=== PATIENT | male | born 1970 | race African-American/Black ===

== ENCOUNTER 2020-04-27 18:40 | Inpatient (IN) | payer MEDICAID ==
[~2020-04-27] VITALS: Ht 167.6 cm; Wt 95.3 kg
[~2020-04-27 18:40] MED LIST: INDO50CA99 PO; METO-385 PO
[2020-04-27] MEDS ORDERED: ACETAMINOPHEN 325MG TABLET PO STA (18:54)
[2020-04-27] MEDS ORDERED: PIPERACILLIN/TAZ 3.375G PREMIX 50 ML IV ONE (19:00)
[2020-04-27] MEDS ORDERED: SODIUM CHLORIDE 0.9% 1000ML BAG (SEPSIS BOLUS) IV ONE (19:00)
[2020-04-27] MEDS ORDERED: VANCOMYCIN 1 G PREMIX 200 ML IV ONE (19:00)
[2020-04-27 19:29] LABS: HEMATOCRIT. 29.3 % (42.0-52.0); HEMOGLOBIN. 9.5 g/dL (14.0-18.0); MEAN CORPUSCULAR HEMOGLOBIN 26.6 pg (28.0-32.0); MEAN CORPUSCULAR VOLUME 82.2 fL (80.0-94.0); MEAN PLATELET VOLUME 8.4 fl (7.4-10.4); PLATELET 370 x1000/uL (130-400); RED BLOOD CELL COUNT 3.57 mill/uL (4.7-6.1); RED CELL DISTRIBUTION WIDTH 17.7 % (11.6-14.6)
[2020-04-27 19:36] LABS: CHLORIDE 105 mEq/L (98-107)
[2020-04-27 20:03] LABS: PLATELET ESTIMATE NORMAL
[2020-04-27 20:45] LABS: INR 1.2; PROTHROMBIN TIME 12.2 sec (9.6-11.0)
[2020-04-27 23:51] LABS: CLARITY URINE CLEAR (CLEAR); COLOR URINE DARK YELLOW (YELLOW); KETONES URINE NEGATIVE (NEGATIVE); LEUKOCYTE ESTERASE URINE TRACE (NEGATIVE); NITRITE URINE NEGATIVE (NEGATIVE); OCCULT BLOOD URINE 2+ (NEGATIVE); PROTEIN URINE 2+ (NEGATIVE); SPECIFIC GRAVITY URINE 1.024 (1.005-1.030)
[2020-04-28 08:41] VITALS: BP 155/80
[2020-04-28] MEDS ORDERED: HYDROCODONE/ACETAMINOPHEN 5/325MG TABLET PO PRN (09:45)
[2020-04-28] MEDS ORDERED: ACETAMINOPHEN 325MG TABLET PO PRN (09:45)
[2020-04-28] MEDS: AMLODIPINE 10MG TABLET PO SCH (11:17)
[2020-04-28] MEDS: DEXAMETHASONE 2MG TABLET PO SCH (11:17)
[2020-04-28 12:10] VITALS: BP 123/68
[2020-04-28] MEDS: CEFTRIAXONE 1,000 MG in DEXTROSE 5% WATER 50 ML IV SCH (15:09)
[2020-04-28] MEDS: AZITHROMYCIN 500 MG in DEXT 5% WATER 250 ML IV SCH (15:09)
[2020-04-28 16:20] VITALS: BP 131/78
[2020-04-28 20:00] VITALS: BP 130/75
[2020-04-28] MEDS: ENOXAPARIN 40MG/0.4ML SYR SUBCUT SCH (21:25)
[2020-04-28] MEDS: METOPROLOL TARTRATE 50MG TABLET PO SCH (21:25)
[2020-04-28] MEDS: COLCHICINE 0.6MG TABLET PO SCH (21:25)
[2020-04-29 04:19] VITALS: BP 152/90
[2020-04-29 06:32] LABS: CHLORIDE 109 mEq/L (98-107)
[2020-04-29 06:43] LABS: HEMATOCRIT. 26.8 % (42.0-52.0); HEMOGLOBIN. 8.8 g/dL (14.0-18.0); MEAN CORPUSCULAR HEMOGLOBIN 26.6 pg (28.0-32.0); MEAN CORPUSCULAR VOLUME 81.4 fL (80.0-94.0); MEAN PLATELET VOLUME 8.8 fl (7.4-10.4); PLATELET 365 x1000/uL (130-400); RED CELL DISTRIBUTION WIDTH 17.6 % (11.6-14.6)
[2020-04-29 08:09] VITALS: BP 146/92
[2020-04-29] MEDS: DEXAMETHASONE 2MG TABLET PO SCH (08:44)
[2020-04-29] MEDS: AMLODIPINE 10MG TABLET PO SCH (08:45)
[2020-04-29] MEDS: COLCHICINE 0.6MG TABLET PO SCH ×2 (08:46→19:54)
[2020-04-29] MEDS: METOPROLOL TARTRATE 50MG TABLET PO SCH ×2 (08:46→19:53)
[2020-04-29] MEDS: CEFTRIAXONE 1,000 MG in DEXTROSE 5% WATER 50 ML IV SCH (11:54)
[2020-04-29 12:00] VITALS: BP 148/66
[2020-04-29] MEDS: AZITHROMYCIN 500 MG in DEXT 5% WATER 250 ML IV SCH (12:48)
[2020-04-29 16:00] VITALS: BP 117/74
[2020-04-29 18:00] LABS: PLATELET ESTIMATE NORMAL
[2020-04-29 19:52] VITALS: BP 126/75
[2020-04-29] MEDS: ENOXAPARIN 40MG/0.4ML SYR SUBCUT SCH (19:54)
[2020-04-29 20:00] VITALS: BP 122/73
[2020-04-29 22:25] LABS: TOTAL IRON BINDING CAPACITY 108 ug/dL (250-450)
[2020-04-29 23:02] LABS: VITAMIN B12 SERUM 1244 pg/mL (211-911)
[2020-04-29 23:26] LABS: FERRITIN 3819 ng/mL (22-322)
[2020-04-30] VITALS: BP 126/84
[2020-04-30 04:40] VITALS: BP 125/78
[2020-04-30 07:02] LABS: HEMATOCRIT. 28.8 % (42.0-52.0); HEMOGLOBIN. 9.3 g/dL (14.0-18.0); MEAN CORPUSCULAR HEMOGLOBIN 26.7 pg (28.0-32.0); MEAN CORPUSCULAR VOLUME 82.8 fL (80.0-94.0); MEAN PLATELET VOLUME 8.9 fl (7.4-10.4); PLATELET 413 x1000/uL (130-400); RED BLOOD CELL COUNT 3.48 mill/uL (4.7-6.1); RED CELL DISTRIBUTION WIDTH 17.5 % (11.6-14.6)
[2020-04-30 07:05] LABS: CHLORIDE 109 mEq/L (98-107)
[2020-04-30 08:21] VITALS: BP 148/86
[2020-04-30] MEDS: COLCHICINE 0.6MG TABLET PO SCH ×2 (09:15→20:26)
[2020-04-30] MEDS: METOPROLOL TARTRATE 50MG TABLET PO SCH ×2 (09:15→20:26)
[2020-04-30] MEDS: PANTOPRAZOLE SODIUM 40 MG/VIAL IV SCH (09:15)
[2020-04-30] MEDS: AMLODIPINE 10MG TABLET PO SCH (09:15)
[2020-04-30] MEDS: AZITHROMYCIN 500 MG in DEXT 5% WATER 250 ML IV SCH (11:27)
[2020-04-30] MEDS: CEFTRIAXONE 1,000 MG in DEXTROSE 5% WATER 50 ML IV SCH (11:27)
[2020-04-30 12:00] VITALS: BP 129/64
[2020-04-30 13:56] LABS: PLATELET ESTIMATE INCREASED
[2020-04-30] MEDS: SODIUM CHLORIDE 0.9% 1,000 ML IV SCH (15:30)
[2020-04-30 16:00] VITALS: BP 127/69
[2020-04-30 20:10] VITALS: BP 162/90
[2020-04-30] MEDS: ENOXAPARIN 40MG/0.4ML SYR SUBCUT SCH (20:28)
[2020-05-01 00:36] VITALS: BP 109/64
[2020-05-01 04:07] VITALS: BP 120/66
[2020-05-01] MEDS: SODIUM CHLORIDE 0.9% 1,000 ML IV SCH ×2 (06:16→16:12)
[2020-05-01 06:25] LABS: BASOPHILS % 0.4 % (0.0-2.0); EOSINOPHILS % 0.1 % (0.0-5.0); HEMATOCRIT. 26.6 % (42.0-52.0); HEMOGLOBIN. 8.6 g/dL (14.0-18.0); LYMPHOCYTES % 15.9 % (20.0-50.0); MEAN CORPUSCULAR HEMOGLOBIN 26.6 pg (28.0-32.0); MEAN CORPUSCULAR VOLUME 82.4 fL (80.0-94.0); MEAN PLATELET VOLUME 8.8 fl (7.4-10.4); MONOCYTES % 9.6 % (2.0-8.0); PLATELET 423 x1000/uL (130-400); RED BLOOD CELL COUNT 3.23 mill/uL (4.7-6.1); RED CELL DISTRIBUTION WIDTH 17.7 % (11.6-14.6)
[2020-05-01 07:06] LABS: CHLORIDE 113 mEq/L (98-107)
[2020-05-01 07:27] LABS: HAPTOGLOBIN 399 mg/dL (30-200)
[2020-05-01 08:00] VITALS: BP 131/71
[2020-05-01] MEDS: AMLODIPINE 10MG TABLET PO SCH (08:27)
[2020-05-01] MEDS: COLCHICINE 0.6MG TABLET PO SCH ×2 (08:27→20:28)
[2020-05-01] MEDS: PANTOPRAZOLE SODIUM 40 MG/VIAL IV SCH (08:28)
[2020-05-01] MEDS: METOPROLOL TARTRATE 50MG TABLET PO SCH ×2 (08:28→20:33)
[2020-05-01] MEDS ORDERED: POTASSIUM CHLORIDE 20MEQ TABLET SR PO NR (11:00)
[2020-05-01 12:00] VITALS: BP 131/71
[2020-05-01] MEDS: CEFTRIAXONE 1,000 MG in DEXTROSE 5% WATER 50 ML IV SCH (12:17)
[2020-05-01] MEDS: AZITHROMYCIN 500 MG in DEXT 5% WATER 250 ML IV SCH (13:02)
[2020-05-01 15:29] VITALS: BP 112/69
[2020-05-01 20:00] VITALS: BP 118/70
[2020-05-01] MEDS: ENOXAPARIN 40MG/0.4ML SYR SUBCUT SCH (20:29)
[2020-05-02 00:01] VITALS: BP 107/76
[2020-05-02 04:00] VITALS: BP 113/61
[2020-05-02] MEDS: SODIUM CHLORIDE 0.9% 1,000 ML IV SCH (06:00)
[2020-05-02 06:14] LABS: BASOPHILS % 0.4 % (0.0-2.0); EOSINOPHILS % 0.9 % (0.0-5.0); HEMATOCRIT. 27.6 % (42.0-52.0); LYMPHOCYTES % 16.6 % (20.0-50.0); MEAN CORPUSCULAR HEMOGLOBIN 26.8 pg (28.0-32.0); MEAN CORPUSCULAR VOLUME 82.3 fL (80.0-94.0); MEAN PLATELET VOLUME 8.6 fl (7.4-10.4); NEUTROPHILS % 71.1 % (40.0-76.0); PLATELET 468 x1000/uL (130-400); RED BLOOD CELL COUNT 3.35 mill/uL (4.7-6.1); RED CELL DISTRIBUTION WIDTH 17.9 % (11.6-14.6)
[2020-05-02 06:19] LABS: CHLORIDE 109 mEq/L (98-107)
[2020-05-02 07:59] VITALS: BP 131/65
[2020-05-02] MEDS: PANTOPRAZOLE SODIUM 40 MG/VIAL IV SCH (08:25)
[2020-05-02] MEDS: METOPROLOL TARTRATE 50MG TABLET PO SCH (08:25)
[2020-05-02] MEDS: COLCHICINE 0.6MG TABLET PO SCH (08:26)
[2020-05-02] MEDS: AMLODIPINE 10MG TABLET PO SCH (08:26)
[2020-05-02 09:09] LABS: FOLATE HEMATOCRIT 28.6 % (37.5-51.0)
[2020-05-02 11:42] VITALS: BP 114/61
[2020-05-02] MEDS ORDERED: HYDR-4001 MT (12:14)
[2020-05-02] MEDS ORDERED: AMLO10TA80 PO (12:14)
[2020-05-02] MEDS ORDERED: COLC0.6C3 MT (12:15)
[2020-05-02 13:07] LABS: FOLATE RBC 808 ng/mL (>498)
[2020-05-02] MEDS: CEFTRIAXONE 1,000 MG in DEXTROSE 5% WATER 50 ML IV SCH (13:22)
[2020-05-02] MEDS: AZITHROMYCIN 500 MG in DEXT 5% WATER 250 ML IV SCH (13:51)
[2020-05-02 14:00] VITALS: BP 114/61
[2020-05-11 17:06] LABS: DIRECTOR REVIEW Comment: (.); FISH RESULTS Comment: (.)
== END 2020-05-02 15:37 | disposition home health service (06) | DRG 720 ==
LOC: ER 18:40 → MICUSO 20:31 → EDBEDREQ 20:39 → EDBEDREQTM 20:39 → 7WST 04-28 07:29 → 6WST 04-29 21:30
PROVIDERS: ADMIT Internal Medicine; ATTEND Internal Medicine
DX: A41.9 Sepsis, unspecified organism (principal); J96.00 Acute respiratory failure, unspecified whether with hypoxia or hypercapnia; E43 Unspecified severe protein-calorie malnutrition; N17.9 Acute kidney failure, unspecified; M10.9 Gout, unspecified; D63.8 Anemia in other chronic diseases classified elsewhere; M06.4 Inflammatory polyarthropathy; M79.89 Other specified soft tissue disorders; I10 Essential (primary) hypertension; E05.90 Thyrotoxicosis, unspecified without thyrotoxic crisis or storm; E03.9 Hypothyroidism, unspecified; E80.6 Other disorders of bilirubin metabolism; D50.9 Iron deficiency anemia, unspecified; K76.0 Fatty (change of) liver, not elsewhere classified; Z20.828 Contact with and (suspected) exposure to other viral communicable diseases; K80.20 Calculus of gallbladder without cholecystitis without obstruction; R16.0 Hepatomegaly, not elsewhere classified; E87.6 Hypokalemia
CPT/HCPCS: 36415; 71045; 73070; 73080; 73130; 76700; 80048; 80053; 80076; 81003; 82607; 82668; 82728; 82747; 83010; 83540; 83550; 83605; 83615; 84145; 84450; 84460; 84484; 84550; 85014; 85025; 85044; 85651; 86038; 87635; 93005; 97162; 97166; 99291; C9113; J0456; J0696; J1650; J2543; J3370; J7030; J7060; J8540